=== PATIENT | male | born 1970 | race Caucasian/White ===

== ENCOUNTER 2025-08-21 10:28 | Emergency (ER) | payer OTHER ==
[~2025-08-21] VITALS: Ht 167.6 cm; Wt 78.0 kg
[2025-08-21 10:35] VITALS: O2SAT 100
[2025-08-21] MEDS: KETOROLAC 15MG/ML VIAL IM ONE (12:28)
[2025-08-21 12:29] VITALS: BP 139/89; PULSE 87; RESP 14; TEMP 37.1; O2SAT 100
[2025-08-21] MEDS: ACETAMINOPHEN 500MG TABLET PO ONE (12:29)
[2025-08-21] MEDS ORDERED: IBUP-2028 MT (12:39)
== END 2025-08-21 12:51 | disposition home or self-care (01) ==
LOC: ER 10:28
DX: S09.8XXA Other specified injuries of head, initial encounter (principal); V43.62XA Car passenger injured in collision with other type car in traffic accident, initial encounter; Y92.410 Unspecified street and highway as the place of occurrence of the external cause; Y93.89 Activity, other specified; Y99.8 Other external cause status
CPT/HCPCS: 99285; 70450; 96372; J1885